=== PATIENT | female | born 1955 | race Caucasian/White ===

== ENCOUNTER 2017-04-15 05:05 | Inpatient (IN) | payer OTHER ==
[~2017-04-15] VITALS: Ht 177.8 cm; Wt 108.0 kg
[2017-04-15] VITALS (7 sets, daily range): BP systolic 140–206; BP diastolic 70–100
[~2017-04-15 05:05] MED LIST: ALPRAZOLAM1 M2 PO; AMBIEN 10MG10 MG PO; APAP500 MG PO; BACTRIM DS 8001 TAB PO; ESCITALOPRAM20 MG PO; METANX 2.8 MG-21 TAB PO; METAXALONE800 MG PO; METFORMIN HCL500 M3 PO; PERCOCET 325 MG1 TA2 PO; PROTONIX40 M3 PO; TRAMADOL HYDRO100 MG PO; ZOFRAN 4 MG TABL4 MG PO
--- NOTE | 2017-04-15 08:02 | Admission Core Measures ---
Admission Meds I reviewed the following Meds: Current Medications Sig/Brittani Start time Last Medication Dose Stop Time Status Admin Cefazolin Sodium 2,000 MG ONCE 04/15 0000 NR (Kefzol-Ancef Inj) 04/15 2359 Heparin Sodium 5,000 UNIT ONCE 04/15 0000 NR (Porcine) 04/15 2359 Acute Coronary Syndrome Inclusion Criteria ACS Diagnosis No Inpatient Core Measures LDL Reminder: If No, please order W/I first 24hr of stay Congestive Heart Failure Inclusion Criteria CHF Diagnosis No Cerebrovascular accident Inclusion Criteria CVA/TIA Diagnosis No Inpatient Core Measures Bedside Swallow Eval Reminder: If BSE failed, place ST order Antithrombotic Reminder: Order Antithrombotic Medication by end of day 2 Antithrombotic Reminder: Document Reason Antithrombotic Not ordered by end of day 2 AFIB/Flutter Reminder: If Present, add to problem list AFIB/Flutter Reminder: Order Anticoag Medication for pts with AFIB/Flutter Atherosclerosis Reminder: If Present, add to problem list LDL Reminder: If No, please order W/I first 24hr of stay PT Order Reminder: If No, please order Venous thromboembolism Inpatient Core Measures VTE Risk Factors: Age > 40, Obesity, Surgery [facility] prophylaxis d/t No contraindications No VTE Pharm Prophylaxis d/t No contraindications Inclusion Criteria - Per Current guidelines, there needs to be overlap - treatment for the first 5 days of Warfarin therapy. - Parenteral Anticoagulation (IV or SC) needs to be - given along with Warfarin therapy. VTE Diagnosis No VTE Type NONE VTE Confirmed by (Test) NONE Problem List As ranked by this Provider includes Assessment & Plan 1. Morbid obesity 2. History of Ena-en-Y gastric bypass 3. Diabetes 4. GERD (gastroesophageal reflux disease) HOME MEDS Home Med List Alprazolam 1 MG TABLET 1 TAB PO BIDP PRN ANXIETY (Reported) Escitalopram Oxalate 20 MG TAB 1 TAB PO DAILY ANXIETY (Reported) Metformin HCl 500 MG TABLET 1 TAB PO TID DM II (Reported) Pantoprazole Sodium (Protonix) 40 MG TABLET.DR 1 TAB PO DAILY GERD (Reported) Zolpidem Tartrate (Ambien 10MG) 10 MG TAB 1 TAB PO QPM SLEEP (Reported)
--- NOTE | 2017-04-15 10:02 | Operative Report ---
Operative/Inv Procedure Report Surgery Date: 04/15/17 Name of Procedure: Laparoscopic Gastric Bypass, Laparoscopic Hiatal hernia repair Pre-Operative Diagnosis: Morbid Obesity BMI 35, DM, Hiatal hernia Post-Operative Diagnosis: Same Estimated Blood Loss: less than 50ml Surgeon/Sleep Manager: NATALIA HARRIS DO, MD Anesthesia: general endotracheal tube IV Fluids: 1000 cc Drains: 10 Fr RUQ SHAYLEE Drain Specimens: None Complications: None Condition: Stable Operative Indication: This is a 61-year-old female presented to the office for workup for bariatric surgery. After appropriate workup was completed we discussed the band, the sleeve, and the gastric bypass. The patient chose to undergo a gastric bypass. All risks including but not limited to bleeding, infection, leak, stricture, marginal ulcer, injury to surrounding bowel/esophagus/stomach/liver/spleen, long -term malabsorption/malnutrition, dumping syndrome, internal hernia/small bowel obstruction, DVT/PE, and mortality of 11/999 patients were discussed in detail. The patient understood everything and decided to proceed. Operative/Procedure Note Note: The patient was brought to the operating room and placed on the table in supine position. Venodyne dockings were placed and adequate general endotracheal anesthesia was obtained. The patient was prepped and draped in standard surgical fashion. Began the procedure by making a 2 cm transverse incision supraumbilically and slightly to the left of the midline. Then using a 12 mm clear Visiport and a 10 mm 0 laparoscope the abdominal cavity was accessed. Great care was taken to go through the anterior rectus sheath, the posterior rectus sheath, and through the peritoneum. Once we entered the peritoneum the abdominal cavity was insufflated to 15 mmHg. Upon initial examination no obvious gross pathology was seen. Accessory trocars were placed, 5 mm in the epigastrium for the Aaliyah liver retractor. The liver retractor was inserted and the liver was retracted anteriorly exposing the hiatus, a small hiatal hernia was seen. 5 mm ports were placed in the right and left upper quadrant, 5 mm left lateral port, and a 12 mm right lateral port. Began the procedure by mobilizing the angle of His and the left meryl of the diaphragm. The stomach was retracted towards the feet and the peritoneum was lysed until the left meryl was clearly visualized. The left meryl was then dissected away from the stomach and esophagus and the hernia sac was reduced exposing a medium size hiatal hernia. Following this the pars flaccida was opened up to the right meryl, the peritoneum along the right meryl was opened as well and the hernia sac was identified and reduced. The esophagus was then dissected out of the chest using Harmonic scalpel until it was in the abdominal cavity for approximately 2-3 cm. We then brought our attention to the lesser curvature, and at the second vessel will began accessing the retrogastric space. Was done using Harmonic scalpel maintaining hemostasis. Once the retrogastric space was accessed we began creating our pouch using 60 mm purple staple load 4. The pouch was created around an Lizandro tube. Once the pouch was completely disconnected from the gastric remnant we examined the staple lines, some bleeding was noted and that was controlled using endoclips. The esophagus was retracted anteriorly and the hiatus was closed using 2-0 Tycron suture. At the completion the hiatus was adequately closed and there was ample room for the esophagus. We then brought our attention to the small bowel, the omentum was retracted above the transverse colon and the ligament of Treitz was identified. The small bowel was run 50 cm and divided using 60 mm foster staple load. 2 clips were placed on the proximal staple line which was the biliopancreatic limb. That limb was run to the ligament of Treitz to assure that that was the blind limb. Following this the omentum was divided using Harmonic scalpel. After the omentum was divided the small bowel was coming up to the gastric pouch with no tension. At that point an enterotomy was made 5 cm from the prior divided distal staple line, alf between the mesenteric and antimesenteric part. A gastrotomy was made anterior to the staple line. A side to side gastrojejunostomy was created using 45 mm purple staple load approximately 3-3-1/2 cm in diameter. The Lizandro tube was passed through the common enterotomy, and the common enterotomy was closed using 2-0 Vicryl suture in a running fashion double layer. Following this the small bowel was clamped off distal to the anastomosis, and we preformed an air and a methylene blue leak test. No obvious leak was noted. All the methylene blue was suctioned out. The small bowel was then run 120 cm and an enterotomy was made on the antimesenteric side. Another enterotomy was made on the antimesenteric side of the biliopancreatic limb. A side to side functional end end jejunojejunostomy was created using 60 mm foster staple load. The common enterotomy was closed using a 60 mm foster staple load followed by a 45 mm foster staple load. Some bleeding was noted from the staple line and that was controlled using endoclips as well. The mesenteric defect was closed using 2-0 Tycron suture in a running fashion. At that point we examined both anastomoses no obvious bleeding was noted and both appeared intact. 2-0 silk suture was placed at the distal angle of the gastrojejunostomy to take some tension off the anastomosis. A 10 Bulgarian SHAYLEE drain was placed through the right upper quadrant incision under the liver and over the spleen. All ports were removed under direct visualization, no obvious bleeding was noted. Skin was closed using 4-0 Monocryl. Steri-Strips and dressings were placed. The patient was successfully extubated and transferred to the recovery room in stable condition. The patient tolerated the procedure well with no complications. Findings: 3 cm hiatal hernia, 120 cm alimentary limb CC: SOTERO FERRARO,DOMENICA Perez
--- NOTE | 2017-04-15 10:45 | Patient Discharge Instructions ---
Discharge Instructions General Discharge Information You were seen/treated for: Morbid Obesity BMI 35, DM, Hiatal hernia You had these procedures: Surgery Date: 04/15/17 Name of Procedure: Laparoscopic Gastric Bypass, Laparoscopic Hiatal hernia repair Watch for these problems: fever>101.3, increased pain, redness/swelling/drainage, shortness of breath, chest pains, dizziness No bath, but you may shower: Yes Other wound care: ok to remove outer dressings. leave white steri strips in place. expect drainage from previous drain site, for which dry guaze dressing may be used. Diet Continue normal diet: No Recommended Diet: Bariatric Additional DIET Information: weekly bariatric stage diet advancements as tolerated, as directed Activity Full Activity/No Limits: No Activity Self Limited: Yes Pounds, do NOT lift more than: 10 Other activity limits: no heavy lifting. no strenuous activity Acute Coronary Syndrome Inclusion Criteria At DC or during hospital stay patient has or had the following: ACS DIAGNOSIS No Discharge Core Measures Meds if any: Prescribed or Continued at Discharge Meds if any: NOT Prescribed or Continued at Discharge Congestive Heart Failure Inclusion Criteria At DC or during hospital stay patient has or had the following: CHF DIAGNOSIS No Discharge Core Measures Meds if any: Prescribed or Continued at Discharge Meds if any: NOT Prescribed or Continued at Discharge Cerebrovascular accident Inclusion Criteria At DC or during hospital stay patient has or had the following: CVA/TIA Diagnosis No Discharge Core Measures Meds if any: Prescribed or Continued at Discharge Meds if any: NOT Prescribed or Continued at Discharge Venous thromboembolism Inclusion Criteria VTE Diagnosis No VTE Type NONE VTE Confirmed by (Test) NONE Discharge Core Measures - Per Current guidelines, there needs to be overlap - treatment for the first 5 days of Warfarin therapy. - If discharged on Warfarin prior to 5 days of - overlap therapy, the patient will need to be - assessed for post discharge needs including - *Post discharge parental anticoagulation - *Warfarin and/or parental anticoagulation education - *Follow up date to check INR post discharge At least 5 days overlap therapy as Inpatient No Meds if any: Prescribed or Continued at Discharge Note: Overlap Therapy is Warfarin and Anticoagulant Meds if any: NOT Prescribed or Continued at Discharge
[2017-04-15] MEDS ORDERED: HYCET 7.5 MG-3473 ML PO (10:46)
--- NOTE | 2017-04-15 10:51 | Surg Short-stay <48hrs Dis Sum ---
Visit Information Visit Dates Admission Date: 04/15/17 Discharge Date: 04/17/17 Surgical Short Stay DC Summary Admission Diagnosis: Morbid Obesity BMI 35, DM, Hiatal hernia Final Diagnosis: same, s/p Laparoscopic Gastric Bypass, Laparoscopic Hiatal hernia repair Procedure(s): Surgery Date: 04/15/17 Name of Procedure: Laparoscopic Gastric Bypass, Laparoscopic Hiatal hernia repair Summary/Significant Findings: Electively scheduled laparoscopic gastric bypass, hiatal hernia repair by on 04/15/17 for a history of morbid obesity (BMI 35), DM, and hiatal hernia. The procedure went routinely, with a SHAYLEE drain left in place during the operation. An upper gi study was done on post-op day#1 to rule out leak or obstruction. Pain medication was transitioned from iv to oral prior to discharge home. Her SHAYLEE drain was removed prior to discharge. Accucheck were monitored during her hospitalization, and her metformin was held / recommended to stop at discharge. No lovenox was indicated at the time of her discharge, according to her pre-op risk assessment. She was tolerating a bariatric stage 1 diet prior to being discharged to home. Condition at Discharge: stable Discharge Disposition: home or self care Discharge instructions provided to patient/family: Yes Post discharge follow-up plan: one week follow up appointment with no lovenox indicated at the time of discharge pre-printed instructions provided
--- NOTE | 2017-04-15 13:43 | NUR ---
PATIENT ARRIVED TO FLOOR AT 1300 FROM PACU, S/P SLEEVE GASTRIC BYPASS VS 98.0 97 18 168/90 95% ROOM AIR SURGICAL PA IN TO SEE PATIENT, INFORMED OF BP A&O; LCTA; INDEPENDENT; HAS VOIDED IN TOILET 200CC; IV DILAUDID GIVEN FOR PAIN 06/11; 5 ABD DSGS, MINIMAL DRAINAGE, MARKED; SHAYLEE DRAIN TO R ABD; IV #20 TO LH WITH NS @ 125 ML/HR RUNNING. ORIENTED TO ROOM AND CALL JOSHI. SAFETY MAINTAINED, NEEDS WITHIN REACH.
--- NOTE | 2017-04-15 13:52 | PN- Bariatrics ---
Subjective Subjective: Patient noted to be hypertensive in PACU. Since PACU BP has improved but still hypertensive (168/90). Per patient her BP is normally 120s/60s. Denies any lightheadedness, dizziness, chills, chest pain, or SOB. Denies any abdominal pain but does admit to bilateral shoulder pain. Denies any nausea or emesis. Voiding freely since surgery. Objective Vital Signs and I&Os Vital Signs Date Time Temp Pulse Resp B/P B/P Pulse O2 O2 Flow FiO2 Mean Ox Delivery Rate 04/15 1325 98.0 97 18 168/90 95 Room Air 04/15 1325 95 Room Air Intake & Output 04/15 1600 04/15 0800 04/15 0000 04/14 1600 04/14 0800 04/14 0000 Intake Total Output Total 200 Balance -200 Output, Urine 200 Patient 238 lb Weight Weight Reported by Patient Measurement Method Physical Exam: Afebrile, hypertensive, otherwise VSS. General: Lying in bed in NAD. Cardiac: RRR Pulmonary: CTAB Abdominal: Supraumbilical, left and right lower dressing with mild serosanguinous drainage, otherwise other dressings c/d/i. No active drainage noted. Areas of drainage marked. Soft, non distended, non tender to palpation. Extremity: No LE edema. Current Medications: Current Medications Sig/Brittani Start time Last Medication Dose Route Stop Time Status Admin Acetaminophen 1,000 MG Q6 04/15 1400 AC N/A 1 UNIT IV 04/16 0614 Acetaminophen/ 15 ML Q6P PRN 04/15 1315 AC Hydrocodone Bitart PO Alprazolam 1 MG BID PRN 04/15 0815 AC PO 04/22 0814 Cefazolin Sodium 2,000 MG IQ8 04/15 1600 AC IV 04/16 0001 Cefazolin Sodium 2,000 MG ONCE 04/15 0000 DC IV 04/15 2359 Escitalopram Oxalate 20 MG DAILY 04/16 1000 AC PO Heparin Sodium 5,000 UNIT Q8 04/15 2200 AC (Porcine) SC Heparin Sodium 0 .STK-MED ONE 04/15 0657 DC (Porcine) .ROUTE Heparin Sodium 5,000 UNIT ONCE 04/15 0000 DC (Porcine) SC 04/15 2359 Hydromorphone HCl 1 MG Q4P PRN 04/15 1315 AC 04/15 IV 1321 Insulin Aspart 0 Q6 04/15 1200 AC SC Ondansetron HCl 4 MG Q6P PRN 04/15 1315 AC IV Pantoprazole Sodium 40 MG DAILY 04/16 1000 AC IV Simethicone 40 MG Q6P PRN 04/15 1315 AC PO Sodium Chloride 1,000 ML Q8H 04/15 1315 AC 04/15 IV 1313 Zolpidem Tartrate 5 MG AT BEDTIME PRN 04/15 0815 AC PO Assessment/Plan Assessment/Plan 61 y/o female POD # 0 s/p laparoscopic gastric bypass and hiatal hernia repair. Post operatively noted to be hypertensive, not on any anti-hypertensives at home. Asymptomatic. - Bariatric stage 1 diet this evening - NPO at midnight for UGI in the am - IV/PO liquid pain control - Antiemetics prn nausea - Antibiotics x 24 hours - Nutrition consult - Hypertension - recheck BP in an hour to assess for continued improvement - Diabetes - Insulin sliding scale, FS as ordered - SHAYLEE drain to bulb suction - DVT ppx - HSQ Core Measures/Miscellaneous Venous Thromboembolism VTE Risk Factors: Age > 40, Obesity, Surgery VTE Contraindications: No Contraindications VTE Diagnosis: No VTE Type: NONE VTE Confirmed by (Test): NONE Beta Danielle Is Beta Danielle a Home Med? No Antibiotics Is Patient on Antibiotics? Yes If Yes: prophylaxis
--- NOTE | 2017-04-15 20:09 | NUR ---
MOST RECENT BP 180/90. SURG MUKUND VICTOR AWARE. ORDER TO RECHECK HOURLY. SURGICAL DRESSINGS TO LAP SITES DRAINING BEYOND THE TUCKER DRAWN BY SURG MUKUND. VALENTE AWARE.
--- NOTE | 2017-04-15 21:06 | NUR ---
NURSING NOTE: PTS BP 140/70. HR 64. SURGICAL PA VALENTE MADE AWARE. PER SURGICAL RECHECK BP AGAIN IN 1 HOUR AND CALL WITH RESULTS. PT DENIES SYMPTOMS. WILL CONTINUE TO MONITOR.
--- NOTE | 2017-04-15 22:03 | NUR ---
NURSING NOTE: PT BP 168/94. SURGICAL PA MADE AWARE. PER SURGICAL PA WE DO NOT NEED TO CHECK PTS BLOOD PRESSURE HOURLY BUT DO VITALS Q4 HOURS. PT DENIES SYMPTOMS. WILL CONTINUE TO MONITOR.
[2017-04-16 02:59] VITALS: BP 166/80
--- NOTE | 2017-04-16 06:59 | PN- Bariatrics ---
See Addendum Subjective Subjective: The patient was seen this morning postoperatively day #1. She reports her pain is under adequate control and denies any nausea. She was tolerating a stage I diet without difficulty prior to midnight. She has no other complaints at the current time. Her blood pressure responded well to 1 dose of Lopressor yesterday evening. Objective Vital Signs and I&Os Vital Signs Date Time Temp Pulse Resp B/P B/P Pulse O2 O2 Flow FiO2 Mean Ox Delivery Rate 04/16 0400 95 Room Air 04/16 0259 97.6 54 18 166/80 95 Room Air 04/16 0000 Room Air 04/16 0000 93 Room Air 04/15 2240 98.8 55 18 168/94 93 Room Air 04/15 2102 64 18 140/70 93 Room Air 04/15 2000 95 Room Air 04/15 1953 59 180/90 95 Room Air 04/15 1713 95 Nasal 2.0L Cannula 04/15 1709 57 20 192/100 87 Room Air 04/15 1610 206/100 04/15 1610 206/100 04/15 1600 96 Nasal 2.0L Cannula 04/15 1434 Room Air 04/15 1422 172/82 04/15 1325 98.0 97 18 168/90 95 Room Air 04/15 1325 95 Room Air Intake & Output 04/16 0800 04/16 0000 04/15 1600 14 0800 04/15 0000 04/14 1600 Intake Total 936 413 1853 Output Total 600 420 700 Balance -281 123 3249 Intake, IV 586 069 3278 Intake, Oral 360 150 Output, 20 100 Drainage Output, Urine 600 400 600 Patient 238 lb Weight Weight Reported by Patient Measurement Method Physical Exam: Gen.: Alert and in no obvious distress Skin: Warm and dry Cardiac: S1-S2 regular Pulmonary: Bilateral breath sounds were equal with good exchange Abdomen: Soft, obese, appropriate incisional tenderness, bowel sounds positive. Port sites are clean, dry, and intact. His SHAYLEE 1 holding suction with serosanguineous drainage and bulb. Extremities: Bilateral lower extremities are warm without calf tenderness or significant edema. Assessment/Plan Assessment/Plan Assessment: 61-year-old female status post endoscopic gastric bypass postoperative day 1. The patient is progressing as expected and her pain is under adequate control. Plan: Keep nothing by mouth for upper GI this morning if that is normal the patient be restarted on a bariatric stage I diet Out of bed and ambulate Continue current pain regiment Decrease IV fluids Strict I's and O's GI and DVT prophylaxis Incentive spirometry Follow-up morning laboratory studies Core Measures/Miscellaneous Venous Thromboembolism VTE Risk Factors: Age > 40, Obesity, Surgery VTE Contraindications: No Contraindications VTE Diagnosis: No VTE Type: NONE VTE Confirmed by (Test): NONE Beta Danielle Is Beta Danielle a Home Med? No Antibiotics Is Patient on Antibiotics? No
[2017-04-16 07:00] VITALS: BP 148/72
[2017-04-16 08:26] LABS: ABSOLUTE BASOPHIL COUNT 0 /CUMM (0.0-0.2); ABSOLUTE EOSINOPHIL COUNT 0 /CUMM (0.0-0.7); ABSOLUTE GRANULOCYTE CT 7.6 /CUMM (1.4-6.5); ABSOLUTE MONOCYTE COUNT 0.5 /CUMM (0.10-0.60); BASOPHIL % 0 % (0.0-2.0); EOSINOPHIL % 0.3 % (0-5); HEMATOCRIT 38.2 % (37-47); MEAN CORPUSCULAR HGB 28.8 PG (27.0-31.0); MEAN CORPUSCULAR HGB CONC 33.6 G/DL (33.0-37.0); MEAN CORPUSCULAR VOLUME 85.6 FL (81.0-99.0); MEAN PLATELET VOLUME 8.7 FL (7.4-10.4); PLATELET COUNT 188 /CUMM (130-400); RBC DISTRIBUTION WIDTH 13.5 % (11.5-14.5); RED BLOOD CELL CT 4.47 /CUMM (4.20-5.40); WHITE BLOOD CELL COUNT 9.1 /CUMM (4.8-10.8)
[2017-04-16 09:46] LABS: GRANULOCYTE % 83.1 % (42.2-75.2)
--- NOTE | 2017-04-16 10:30 | RADIOLOGY REPORT ---
EXAMINATION: FLUOROSCOPY UPPER GI WITH GASTROGRAFIN and KUB CLINICAL INFORMATION: 1 day status post gastric bypass study. Postoperative evaluation. COMPARISON: CT scan of the abdomen and pelvis dated 08/26/2015. TECHNIQUE: Frontal view of the abdomen was performed. A limited Gastrografin upper GI study was performed using 30 ml of Gastroview with the patient in the semiupright position. Multiple (4) spot films and 3 cine fluoroscopy runs were acquired and are archived in PACS. FINDINGS: The preliminary rn call center view of the abdomen demonstrates a drain and postsurgical giancarlo in the epigastric region. Mild gaseous distention of bowel loops is seen without abnormal bowel distention seen. Esophageal distensibility and motility is normal. The GE junction is located below the level of the diaphragm, and no GE reflux is seen. The remnant gastric pouch is normal with no abnormal distention or contrast leak seen. There is prompt emptying of contrast into the anastomosed small bowel, which is mildly distended, but otherwise unremarkable in appearance. FLUOROSCOPY TIME: 51 seconds. IMPRESSION: Unremarkable examination status post gastric bypass. No postoperative complications seen.
[2017-04-16 11:00] VITALS: BP 138/78
[2017-04-16 14:29] VITALS: BP 166/84
[2017-04-16 23:41] VITALS: BP 140/86
[2017-04-17 06:24] VITALS: BP 168/86
--- NOTE | 2017-04-17 07:08 | PN- Bariatrics ---
Subjective Subjective: Reports pain improves with hycet. Tolerating stage 1 diet. No nausea/vomiting. Passing flatus. No bm yet. Ambulating well. No dizziness. No shortness of breath. No chest pains. Voiding well. Objective Vital Signs and I&Os Vital Signs Date Time Temp Pulse Resp B/P B/P Pulse O2 O2 Flow FiO2 Mean Ox Delivery Rate 04/17 0624 98.1 78 20 168/86 94 Room Air 04/17 0600 Room Air 04/16 2341 99.4 65 18 140/86 97 Room Air 04/16 2200 Room Air 04/16 1429 99.0 64 18 166/84 98 Room Air 04/16 1400 95 Nasal Room Air Cannula 04/16 1100 98.1 64 18 138/78 97 Room Air 04/16 0800 96 Room Air Room Air Intake & Output 04/17 0800 04/17 0000 04/16 1600 04/16 0800 04/16 0000 04/15 1600 Intake Total 900 705 870 693 312 6487 Output Total 725 40 780 1080 420 700 Balance 175 665 90 -385 984 1139 Intake, IV 600 225 600 033 477 8268 Intake, Oral 300 480 270 0 360 150 Output, 25 40 30 30 20 100 Drainage Output, Urine 837 917 9123 400 600 Patient 238 lb Weight Weight Reported by Patient Measurement Method Physical Exam: General - alert & oriented x 3. comfortable. no acute distress. Lungs - clear bilaterally. no w/r/r. Cardiac - s1s2. reg. Abdomen - soft. dressings stained, but intact. SHAYLEE drain with serosang drainage. expected incisional pain. Extremities - warm bilaterally. no c/c/e. calves soft and nontender b/l. Current Medications: Current Medications Sig/Brittani Start time Last Medication Dose Route Stop Time Status Admin Acetaminophen 1,000 MG Q6 04/15 2359 DC 04/16 N/A 1 UNIT IV 04/16 1214 1109 Acetaminophen/ 15 ML Q6P PRN 04/15 1315 AC 04/16 Hydrocodone Bitart PO 2213 Alprazolam 1 MG TID 04/16 1600 AC 04/17 PO 04/23 1559 0458 Alprazolam 1 MG BID PRN 04/15 0815 DC 04/16 PO 04/22 0814 0544 Escitalopram Oxalate 20 MG DAILY 04/16 1000 AC 06/15 PO 1039 Heparin Sodium 5,000 UNIT Q8 04/15 2200 AC 04/17 (Porcine) SC 0612 Hydromorphone HCl 1 MG Q4P PRN 04/15 1315 AC 04/15 IV 1958 Insulin Aspart 0 Q6 04/15 1200 AC 04/17 SC 0018 Ondansetron HCl 4 MG Q6P PRN 04/15 1315 AC IV Pantoprazole Sodium 40 MG DAILY 04/16 1000 AC 04/16 IV 1040 Simethicone 40 MG Q6P PRN 04/15 1315 AC 04/15 PO 1816 Sodium Chloride 1,000 ML Q8H 04/15 1315 AC 04/17 IV 0613 Zolpidem Tartrate 5 MG AT BEDTIME PRN 04/15 0815 AC PO Results Last 48 Hours of Labs: Laboratory Tests 04/16 0618 Chemistry Sodium (137 - 145 mmol/L) 140 Potassium (3.5 - 5.1 mmol/L) 4.3 Chloride (98 - 107 mmol/L) 104 Carbon Dioxide (22 - 30 mmol/L) 24 Anion Gap (5 - 16) 12 BUN (7 - 17 mg/dL) 9 Creatinine (0.5 - 1.0 mg/dL) 0.5 Estimated GFR (>60 ml/min) > 60 BUN/Creatinine Ratio (7 - 25 %) 18.0 Glucose (65 - 99 mg/dL) 163 H Magnesium (1.6 - 2.3 mg/dL) 1.6 Hematology CBC w Diff NO MAN DIFF REQ WBC (4.8 - 10.8 /CUMM) 9.1 RBC (4.20 - 5.40 /CUMM) 4.47 Hgb (12.0 - 16.0 G/DL) 12.8 Hct (37 - 47 %) 38.2 MCV (81.0 - 99.0 FL) 85.6 MCH (27.0 - 31.0 PG) 28.8 RDW (11.5 - 14.5 %) 13.5 Plt Count (130 - 400 /CUMM) 188 MPV (7.4 - 10.4 FL) 8.7 Gran % (42.2 - 75.2 %) 83.1 H Lymphocytes % (20.5 - 51.1 %) 11.3 L Monocytes % (1.7 - 9.3 %) 5.3 Eosinophils % (0 - 5 %) 0.3 Basophils % (0.0 - 2.0 %) 0 L Absolute Granulocytes (1.4 - 6.5 /CUMM) 7.6 H Absolute Lymphocytes (1.2 - 3.4 /CUMM) 1.0 L Absolute Monocytes (0.10 - 0.60 /CUMM) 0.5 Absolute Eosinophils (0.0 - 0.7 /CUMM) 0 Absolute Basophils (0.0 - 0.2 /CUMM) 0 PUBS MCHC (33.0 - 37.0 G/DL) 33.6 Assessment/Plan Assessment/Plan This 61-year-old female with hx morbid obesity (BMI 35), niddm, hiatal hernia is POD#2 s/p laparoscopic gastric bypass, hiatal hernia repair tolerating stage 1 diet pain controlled ambulating well accuchecks improving protonix - gi ppx hep sc - dvt ppx SHAYLEE drain removed d/c home today f/u pcp and within 2-3 weeks for bp check and accucheck review will d/w Core Measures/Miscellaneous Venous Thromboembolism VTE Risk Factors: Age > 40, Obesity, Surgery VTE Contraindications: No Contraindications VTE Diagnosis: No VTE Type: NONE VTE Confirmed by (Test): NONE Beta Danielle Is Beta Danielle a Home Med? No Antibiotics Is Patient on Antibiotics? No
== END 2017-04-17 10:40 | DRG 621 ==
LOC: SDA 05:05 → ENRESERV 10:23 → ENTRNSPT 12:30 → EDTRNSPTSTS 12:53 → 2NB 13:01 → CMPTRNSPT 13:02 → ENPENDDIS 04-17 07:30 → 2NB 04-17 10:40
PROVIDERS: Physician Assistant; ADMIT Surgery
PROC: 0D164ZA Bypass Stomach to Jejunum, Percutaneous Endoscopic Approach (ICD-10-PCS; principal; 2017-04-15)
PROC: 0BQS4ZZ (ICD-10-PCS; principal; 2017-04-15)
PROC: 0BQR4ZZ (ICD-10-PCS; principal; 2017-04-15)
PROC: 3E0T3CZ (ICD-10-PCS; 2017-04-15)
DX: E66.01 Morbid (severe) obesity due to excess calories (principal); F32.9 Major depressive disorder, single episode, unspecified; Z68.35 Body mass index [BMI] 35.0-35.9, adult; E11.9 Type 2 diabetes mellitus without complications; K44.9 Diaphragmatic hernia without obstruction or gangrene; Z79.84 Long term (current) use of oral hypoglycemic drugs; K21.9 Gastro-esophageal reflux disease without esophagitis
CPT/HCPCS: 2NBSP; 74240; 82436; J0131; J0690; J1100; J1170; J1644; J2405